=== PATIENT | female | born 1985 | race Caucasian/White ===

== ENCOUNTER 2017-08-11 17:17 | Emergency (ER) | payer SELFPAY ==
[~2017-08-11] VITALS: Ht 170.2 cm; Wt 63.0 kg
[~2017-08-11 17:17] MED LIST: CEPH500C3 PO; IBUP-238 PO; LORT5TAB PO; Z.0.NO CURRENT MEDS
[2017-08-11 17:20] VITALS: BP 116/66; PULSE 85; RESP 17; TEMP 98.8; O2SAT 97
[2017-08-11] MEDS ORDERED: AMOX500T PO (19:02)
--- NOTE | 2017-08-11 19:04 | PD ---
HPI Chief Complaint: Cold / Flu Symptoms Time Seen by Provider: 18:46 Travel History International Travel<30 days: No Contact w/Intl Traveler<30days: No Traveled to known affect area: No History of Present Illness HPI 31-year-old female here with sinus pain and pressure 4 days. Patient is reporting mucopurulent nasal discharge. She denies fever or chills. Severity moderate. No alleviating factors. PFSH Past Medical History Medical History: Denies Significant Hx Tetanus Vaccination: > 5 Years Influenza Vaccination: No ?: Not LMP: 08/02/2017 Past Surgical History Surgical History: No Previous Surgery Social History Alcohol Use: Yes (OCC) Tobacco Use: Yes (/2 PPD) Substance Use: No Allergies-Medications (Allergen,Severity, Reaction): Coded Allergies: No Known Allergies (Verified Adverse Reaction, Unknown, 08/11/17) Reported Meds & Prescriptions Reported Meds & Active Scripts Active Amoxicillin 500 Mg Tab 500 Mg PO TID 10 Days Review of Systems Except as stated in HPI: all other systems reviewed are Neg Physical Exam Narrative GENERAL: Well-nourished, well-developed patient. SKIN: Focused skin assessment warm/dry. HEAD: Normocephalic. TTP over frontal maxillary sinuses. Reported mucopurulent nasal discharge EYES: No scleral icterus. No injection or drainage. NECK: Supple, trachea midline. No JVD or lymphadenopathy. CARDIOVASCULAR: Regular rate and rhythm without murmurs, gallops, or rubs. RESPIRATORY: Breath sounds equal bilaterally. No accessory muscle use. Data Data Last Documented VS Vital Signs Date Time Temp Pulse Resp B/P (MAP) Pulse Ox O2 Delivery O2 Flow Rate FiO2 08/11/17 17:20 98.8 85 17 116/66 (83) 97 MDM Medical Decision Making Medical Screen Exam Complete: Yes Emergency Medical Condition: Yes Differential Diagnosis SINUSITIS, URI, INFLUENZA Narrative Course 31-year-old female here with sinus pain and pressure 4 days. Patient is reporting mucopurulent nasal discharge. On exam patient has maxillary and frontal sinus tenderness. She'll be prescribed amoxicillin because she is unable to afford Augmentin. Return precautions discussed. Patient verbalizes understanding and agrees to plan Diagnosis Primary Impression: Sinusitis Qualified Codes: J01.00 - Acute maxillary sinusitis, unspecified Referrals: [facility] Additional Instructions: Take the antibiotic as prescribed. Take [id number] Motrin as needed for pain. Scripts Amoxicillin (Amoxicillin) 500 Mg Tab 500 MG PO TID for Infection for 10 Days, TAB 0 Refills Prov: Tracy Kemp 08/11/17 Disposition: 01 DISCHARGE HOME Condition: Stable Tracy Kemp Aug 11, 2017 19:04
== END 2017-08-11 19:19 | disposition home or self-care (01) ==
LOC: PHEFT 17:17
DX: J01.00 Acute maxillary sinusitis, unspecified (principal); F17.200 Nicotine dependence, unspecified, uncomplicated
CPT/HCPCS: 99283